=== PATIENT | female | born 1985 | race Caucasian/White ===

== ENCOUNTER 2016-07-23 17:58 | Emergency (ER) | payer OTHER, BC | END 2016-07-23 19:58 | disposition home or self-care (01) | LOC: ER1 17:58 | DX: R51 Headache (principal); Z88.8 Allergy status to other drugs, medicaments and biological substances; V43.52XA Car driver injured in collision with other type car in traffic accident, initial encounter; Y93.89 Activity, other specified; Y92.410 Unspecified street and highway as the place of occurrence of the external cause | CPT/HCPCS: 70450; 72125; 99284 ==

== ENCOUNTER 2020-03-30 17:33 | Emergency (ER) | payer OTHER ==
[~2020-03-30 17:33] MED LIST: BACTROBAN OINT22 GM TOP; IBUPROFEN600 MG PO; KEFLEX CAP 500500 MG PO; NORFLEX 100 MG100 MG PO; PREDNISONE 50 M50 MG PO; TAMIFLU 75 MG C75 MG PO
[2020-03-30 20:07] LABS: HEMOGLOBIN 15.1 gm/dl (12.3-15.3); RED BLOOD COUNT 4.78 M/UL (4.00-5.10); WHITE BLOOD COUNT 7.3 K/UL (4.5-11.0)
[2020-03-30 20:27] LABS: BUN/CREATININE RATIO 18 (0-10)
[2020-03-31] MEDS ORDERED: ZOFRAN 4 MG TAB4 MG PO (01:04)
[2020-03-31] MEDS ORDERED: IMITREX25 MG PO (01:04)
== END 2020-03-31 01:35 | disposition home or self-care (01) ==
LOC: ER1 17:33
PROVIDERS: Emergency Medicine
DX: R55 Syncope and collapse (principal); M79.10 Myalgia, unspecified site; R51.9 Headache, unspecified; Z20.822 Contact with and (suspected) exposure to COVID-19
CPT/HCPCS: 70450; 71045; 80053; 81001; 82550; 82553; 83605; 83690; 83874; 84484; 84703; 85025; 85379; 93005; 99284; U0002

== ENCOUNTER → 2021-03-31 | Outpatient (CLI) | payer OTHER ==
[~2021-03-31] MED LIST changes: +IMITREX25 MG PO; +ZOFRAN 4 MG TAB4 MG PO
== END ==
LOC: RAD 18:07
DX: U07.1 COVID-19 (principal); R91.8 Other nonspecific abnormal finding of lung field
CPT/HCPCS: 71046